=== PATIENT | female | born 1955 | race American Indian/Alaskan Native ===

== ENCOUNTER 2017-09-30 14:00 | Outpatient (CLI) | payer MEDICARE ==
--- NOTE | 2017-09-30 22:04 | XRay Report ---
FINAL REPORT PROCEDURE: XR KNEE BILAT 3V TECHNIQUE: Bilateral knees, three views HISTORY: PAIN IN KNEES COMPARISON: No prior studies are available for comparison. FINDINGS: Right knee: There are tricompartmental osteoarthritic changes, particularly involving the medial and patellofemoral compartments, with severe joint space narrowing and osteophyte formation. Small joint effusion. No acute fracture or dislocation is seen. Left knee: There has been left knee arthroplasty. The hardware is in the expected location. No lucency surrounds the hardware. IMPRESSION: Severe osteoarthritis of the right knee. Patient status post left knee arthroplasty
--- NOTE | 2017-09-30 22:09 | XRay Report ---
FINAL REPORT PROCEDURE: XR SHOULDER BILAT 2+V TECHNIQUE: Bilateral shoulders, three views HISTORY: OSTEOARTHRITIS COMPARISON: No prior studies are available for comparison. FINDINGS: Right shoulder: No fracture or dislocation is seen. There is mild glenohumeral joint space narrowing. There are moderate to severe acromioclavicular osteoarthritic changes, with 4 millimeter inferiorly oriented osteophyte projecting off the distal clavicle. Left shoulder: There are moderate to severe left glenohumeral joint osteoarthritic changes. Mild to moderate left acromioclavicular joint arthritic changes are seen. No fracture or dislocation. IMPRESSION: Bilateral osteoarthritis
== END 2017-09-30 14:01 | disposition home or self-care (01) ==
LOC: XRAY 14:00
DX: M17.11 Unilateral primary osteoarthritis, right knee (principal); M19.011 Primary osteoarthritis, right shoulder; M19.012 Primary osteoarthritis, left shoulder; Z96.652 Presence of left artificial knee joint